=== PATIENT | female | born 1970 | race Caucasian/White ===

== ENCOUNTER 2016-09-27 19:31 | Inpatient (IN) | payer BC, OTHER ==
[~2016-09-27] VITALS: Ht 162.6 cm; Wt 49.9 kg
[2016-09-27] MEDS ORDERED: diphenhydrAMINE 50 MG CAPSULE PO PRN (21:45)
[2016-09-27] MEDS ORDERED: MAG HYDROX/AL HYDROX/SIMETH 30 ML LIQUID UDC PO PRN (21:45)
[2016-09-27] MEDS ORDERED: THIAMINE HCL 200 MG/2 ML VIAL IM ONE (21:45)
[2016-09-27] MEDS ORDERED: MIRALAX 17 GM POWD.PACK PO PRN (21:45)
[2016-09-27] MEDS ORDERED: PROMETHAZINE HCL 25 MG/1 ML VIAL IM PRN (21:45)
[2016-09-27] MEDS ORDERED: LOPERAMIDE HCL 2 MG CAPSULE PO PRN ×2 (21:45)
[2016-09-27] MEDS ORDERED: ONDANSETRON ODT 4 MG TAB.RAPDIS SL PRN (21:45)
[2016-09-27] MEDS ORDERED: MAGNESIUM HYDROXIDE 30 ML LIQUID UDC PO PRN (21:45)
[2016-09-27] MEDS ORDERED: DICYCLOMINE HCL 20 MG TABLET PO PRN (21:45)
[2016-09-27] MEDS ORDERED: LORAZEPAM 1 MG TABLET PO PRN ×2 (21:45)
[2016-09-27] MEDS ORDERED: LORAZEPAM 2 MG/1 ML VIAL IM PRN (21:45)
[2016-09-27] MEDS ORDERED: ACETAMINOPHEN 325 MG TABLET PO PRN (21:45)
[2016-09-27 22:00] VITALS: BP 148/102
[2016-09-27] MEDS ORDERED: HYDROXYZINE PAMOATE 25 MG CAPSULE ONE (22:06)
[2016-09-27] MEDS: CLONIDINE HCL 0.1 MG TABLET PO PRN (22:12)
[2016-09-27] MEDS: HYDROXYZINE PAMOATE 25 MG CAPSULE PO PRN (22:13)
--- NOTE | 2016-09-27 22:15 | NUR ---
PRN Clonidine, Vistaril, and Zofran Pt is anxious and agitated. She appears mildly intoxicated. She becomes tearful at times and is unable to sit still during initial assessment. CIWA score is 7. B/P 148/102 and HR 107 on admission. She also reports nausea. PRN Clonidine, Vistaril, and Zofran administered.
[2016-09-27] MEDS ORDERED: CLONIDINE HCL 0.1 MG TABLET ONE (22:16)
[2016-09-27] MEDS ORDERED: ONDANSETRON ODT 4 MG TAB.RAPDIS ONE (22:18)
[2016-09-27 22:47] LABS: *AMPHETAMINE, URINE NEGATIVE (NEGATIVE); *BARBITURATE, URINE NEGATIVE (NEGATIVE); *CANNABINOID, URINE NEGATIVE (NEGATIVE); *COCCAINE, URINE NEGATIVE (NEGATIVE); *OPIATE, URINE NEGATIVE (NEGATIVE); *PHENCYCLIDINE SCREEN,URINE NEGATIVE (NEGATIVE)
[2016-09-27 23:15] VITALS: BP 137/90
--- NOTE | 2016-09-27 23:15 | NUR ---
PRN Clonidine, Vistaril, and Zofran reassessment Pt reports relief of nausea and feeling somewhat more relaxed. She is slightly less fidgety. B/P 137/90 and HR 88. CIWA score is 4.
[2016-09-27 23:21] LABS: *URINE HCG, QUAL NEGATIVE (NEGATIVE)
--- NOTE | 2016-09-27 23:30 | NUR ---
ADMISSION Pt is a 46 yo female who [facility] at 2144 on 09/27/16 for medically supervised detox. She is A&O x4 and ambulatory. She reports NKA, is full code status, and on a regular diet. She appears mildly intoxicated and answers questions appropriately. Her gait is slightly unsteady. Pt placed on a 1:1 for safety. Vital signs are B/P 148/102, HR 107, RR 18, O2 sat 97%, T 98.0, and pain 0/10. She is 5'4" and weighs 110lb. She has a PMH of seizure 06/2016 r/t ETOH withdrawal, anxiety, and depression r/t being a 03/07 survivor. Lung sounds clear, PERRLA, bowel sounds present, abdomen soft and non-distended, skin is intact. History of Use ETOH/Vodka or Wine 750mL per day for the past 30 days. She has used ETOH since age 14. Last drink was 1 bottle of wine at 2030 on 09/27/16. Treatment History "I have been in and out of the hospital. I went to [facility] ER in June and 8 months ago" [facility] in [place] in 2013 for 30 days Pt has been to at treatment several times but cannot provide details. Pt smokes 1 pack of cigarettes per day. Prior to 30 days ago the patient reports 4 months of sobriety. Her longest period of sobriety was 2 years "from age [age]". She decided to come to treatment today because "I don't want to ". Pt reports symptoms when she does not drink include "shaky, seizure, anxiety, and it just hurts". She does not have a primary care physician at home. She states that she recently sold her home and lives in a hotel. Urine drug screen negative for all substances. Blood Alcohol level 0.30. CIWA on admission was 7. Admission orders received. Pt educated regarding use of the call light and all questions answered. Fall and seizure precautions in place.
[2016-09-27 23:51] LABS: ALBUMIN 4.2 g/dL (3.4-5.0); BILIRUBIN,TOTAL 0.8 mg/dL (0.2-1.0); CALCIUM 8.7 mg/dL (8.5-10.1); CREATININE 0.9 mg/dL (0.6-1.3); MAGNESIUM 1.9 mg/dL (1.8-2.4); POTASSIUM 3.8 mmol/L (3.5-5.1); TOTAL PROTEIN, SERUM 8.8 g/dL (6.4-8.2)
[2016-09-27 23:59] LABS: BASOPHILS # (AUTO) 0.1 K/uL (0.0-0.2); BASOPHILS % (AUTO) 0.7 % (0.0-2.0); EOSINOPHILS # (AUTO) 0.1 K/uL (0.0-0.7); HEMATOCRIT 44.8 % (37.0-47.0); HEMOGLOBIN 15.3 g/dL (12.0-16.0); LYMPHOCYTES % (AUTO) 38.1 % (20.5-51.5); MEAN CORPUSCULAR HEMOGLOBIN 29.1 uug (27.0-31.0); MEAN CORPUSCULAR HGB CONC 34 g/dL (32.0-37.0); MEAN CORPUSCULAR VOLUME 85.2 fL (81.0-99.0); MONOCYTES # (AUTO) 0.3 K/uL (0.1-1.30); MONOCYTES % (AUTO) 4.4 % (0.0-11.0); NEUTROPHILS # (AUTO) 4.4 K/uL (1.8-8.9); NEUTROPHILS % (AUTO) 55.8 % (38.5-71.5); PLATELET COUNT (AUTO) 300 K/uL (150-450); RED BLOOD CELL COUNT(AUTO) 5.26 MIL/uL (4.20-5.40); RED CELL DISTRIBUTION WIDTH 12.4 % (11.5-14.5); THYROID STIMULATING HORMONE 0.864 mIU/mL (0.358-3.740); WHITE BLOOD COUNT (AUTO) 7.9 K/uL (4.0-11.2)
[2016-09-28] VITALS: BP 137/90
[2016-09-28] MEDS ORDERED: TRAZODONE 50 MG TABLET PO SCH
[2016-09-28 00:02] LABS: HIV-1 p24 ANTIGEN NON REACTIVE (NONREACTIVE); HIV-1/2 ANTIBODY NON REACTIVE (NONREACTIVE)
[2016-09-28 02:40] VITALS: BP 130/86
--- NOTE | 2016-09-28 02:47 | NUR ---
PRN Ativan administration Pt woke up and reported feeling anxious and agitated. She is unable to sit still and gets in and out of bed. She states "I hurt everywhere, I'm used to drinking around the clock". B/P 130/84 and HR 96. CIWA score is 7. PRN Ativan administered.
[2016-09-28] MEDS ORDERED: LORAZEPAM 1 MG TABLET ONE (02:49)
--- NOTE | 2016-09-28 03:47 | NUR ---
PRN Ativan reassessment PRN Ativan effective. Pt is lying comfortably in bed resting with eyes closed. Respirations even and unlabored. Bed is down with call light in reach.
[2016-09-28] MEDS ORDERED: QUET50TA PO ×2 (03:59→08:56)
--- NOTE | 2016-09-28 07:15 | NUR ---
END OF SHIFT Report provided to day shift nurse. Pt is lying in bed resting. She is a 46 yo female admitted to [facility] on 09/27 for ETOH dependence. She has NKA, is full code status, and on a regular diet. Pt was placed on a 1:1 for unsteady gait upon admission as she was mildly intoxicated. 1:1 discontinued as pt's gait became steady. PRN Zofran, Clonidine, Vistaril, and Ativan administered. Last CIWA was 7 prior to Ativan administration. She drank 1210mL and slept for 4 hours.
--- NOTE | 2016-09-28 07:16 | NUR ---
Start of Shift Notes: Received patient in his room. Alert and oriented x 4. Verbally responsive. Appears anxious and tremulous at this time. Able to make his needs known. Respirations even and unlabored. No SOB noted. Skin warm and dry to touch. Abdomen soft and non-distended. BS (+) in all 4 quadrants. No complains of N/V/D or constipation noted. Bladder non-distended. No complains of dysuria noted. Voids independently. Patient is a 46 year old female admitted for ETOH dependence who was placed on PRNs at this time. MD to reassess taper today. Has past medical hx of anxiety, depression and seizures - last one was on 06/2016. NKA. FULL CODE. Regular diet. On fall and seizure precautions. Educated patient on the current plan of care for the day and the medication regimen. Encouraged oral fluid intake and encouraged group participation to learn new skills to prevent relapse. Will continue to monitor closely.
[2016-09-28] MEDS ORDERED: ONDANSETRON 4 MG/2 ML VIAL IM PRN (07:45)
[2016-09-28 08:00] VITALS: BP 126/76
[2016-09-28] MEDS: THIAMINE HCL 100 MG TABLET PO SCH (08:51)
[2016-09-28] MEDS: IBUPROFEN 400 MG TABLET PO PRN ×2 (08:51→20:39)
[2016-09-28] MEDS: FOLIC ACID 1 MG TABLET PO SCH (08:51)
[2016-09-28] MEDS: MULTIVITAMINS,THERAPEUTIC TABLET PO SCH (08:51)
[2016-09-28] MEDS: CLONIDINE HCL 0.1 MG TABLET PO PRN (08:51)
--- NOTE | 2016-09-28 08:51 | NUR ---
Ativan 2 mg/Clonidine 0.1/Imodium 4 mg/Motrin 400 mg PO given: Patient noted with CIWA 16; presented with x 2 episodes of diarrhea, anxiousness, agitation, muscle aches, headache 4/10, visual hallucinations m/b seeing black spots on the wall as well as gross tremors. Medicated patient with Ativan 2 mg per CIWA score of 16, Clonidine 0.1, Imodium 4 mg and Motrin 400 mg PO as ordered. Will monitor for effectiveness. Dr. Oquendo made aware of patient's CIWA score.
[2016-09-28] MEDS ORDERED: LITH300C2 PO (08:56)
[2016-09-28] MEDS ORDERED: TUBERCULIN,PURIF.PROT.DERIV. 5 TU/0.1 ML TEST ID ONE (09:00)
[2016-09-28] MEDS ORDERED: QUETIAPINE FUMARATE 25 MG TABLET PO PRN (09:30)
--- NOTE | 2016-09-28 09:30 | NUR ---
Communication: Dr. Oquendo aware of patient's CIWA score of 16 and will start patient on 5-day Ativan taper at 1000. Orders noted and carried out. Patient informed and made aware.
--- NOTE | 2016-09-28 09:51 | NUR ---
Re-assessment/Seroquel 12.5mg PO given/Taper started: ANSLEYWA 13; No further episodes of diarrhea noted, gross tremors still noted, less anxious and less anxiety noted. Started Ativan 2 mg PO at 1000 per scheduled taper and medicated patient Seroquel 12.5mg PO for visual hallucinations. Will continue to monitor.
[2016-09-28] MEDS: LORAZEPAM 1 MG TABLET PO SCH ×4 (09:58→20:39)
--- NOTE | 2016-09-28 10:51 | NUR ---
Re-assessment: Seroquel Per patient, she no longer sees black dot on the dalal. PRN Seroquel was effective.
--- NOTE | 2016-09-28 11:54 | NUR ---
Room change: Patient was moved from Rm 301 to 310 at this time with all belongings.
[2016-09-28 12:00] VITALS: BP 125/85
[2016-09-28 16:00] VITALS: BP 111/76
--- NOTE | 2016-09-28 17:47 | NUR ---
Ativan 2 mg PO at 1700 held: Patient appears sedated. VS stable. BP 11/75, Pulse 60, O2 sat 99%, RR 16. Held [address] Oquendo made aware.
--- NOTE | 2016-09-28 18:41 | NUR ---
End of Shift Notes: Patient is a 46 year old female admitted for ETOH dependence who was placed on a 5-day Ativan taper that was started today at 1000. Tolerated taper well. No adverse reactions noted. FULL CODE. Regular diet. NKA. Has past medical hx of seizures last one in 2017, anxiety, depression and bipolar disorder. Prior to admission, patient was using 750cc or either wine or vodka since 14 years old. On fall and seizure precautions. Initial CIWA 16, patient presented with visual hallucinations, gross tremors, diarrhea, anxiety, agitation, pins and needless or tingling sensation to her fingertips. Patient reports seeing black dots on the dalal. Redirected and reassurance provided. Medicated patient with Ativan 2 mg, Imodium 4mg, Motrin 400mg, and Clonidine 0.1mg PO at 0851 with help after 1 hour. At 0951 Seroquel 12.5 mg PO was given due to visual hallucinations and initial dose of taper was started. Last CIWA 2. Compliant with care and treatment. Per patient, Ativan has been helping her with her withdrawal symptoms. Able to participate in group and activities despites her withdrawal symptoms. Patient was moved from 201 to 310 at this time. Oral fluids encouraged. Safety precautions in place. All needs met and attended. Will continue to monitor closely.
[2016-09-28 20:00] VITALS: BP 117/76
--- NOTE | 2016-09-28 20:00 | NUR ---
1999 Patient received resting comfortably with eyes closed. Aroused easily for nurse assess and vital signs. Patient responds slowly to nurse's greeting with brief eye contact and a flat, " hello". Patient's color is pink and her skin is warm, dry and intact. Patient is oriented to person, place, day and her situation. Reoriented to date and time. Patient's lung sounds are clear bilaterally and active bowel sounds are noted X 4 abdominal Quads, per auscultation. Patient noted to move all her extremities fully WNL, though a bit slowly and measured. Patient states that she has been eating a little and taking fluids ad huang since her admission and she further states that she hasn't attended [facility] on a regular basis yet, and in fact did not feel up to attending PM group tonight. Vital signs are: 98-98-16 117/76 O2 sat 100%, CIWA 3. No requests or complaints voiced at this time. [place] snack and sprite taken. Patient was admitted on 09/27/16 for Alcohol withdrawal and she is currently on a 5-Day Ativan medication taper, which she has been apparently well so far. Fall/Seizure precautions continue. Bed is locked and in lowest position, bed rails are up X 2 and call light within patient's easy reach.
[2016-09-28] MEDS: QUETIAPINE FUMARATE 25 MG TABLET PO PRN (20:39)
--- NOTE | 2016-09-28 20:39 | NUR ---
PRN MEDICATIONS: Prn Motrin 400 mg p.o. given per request for her c/o "generalized pain, 7/10 pain scale and Prn Seroquel 25 mg p.o. given per patient's request for sleep medication.
--- NOTE | 2016-09-28 21:39 | NUR ---
REASSESSMENT PRN MEDICATIONS: Patient is awake, alert and downstairs on hospital patio for cigarette with staff and other patients.
[2016-09-29] VITALS: BP 110/71
--- NOTE | 2016-09-29 04:00 | NUR ---
Patient refused V/S, CIWA to be done at this time.
--- NOTE | 2016-09-29 06:30 | NUR ---
0630 Patient slept a total of 7 hours and she had 1 void and no stools. Total intake was 1,151 ml p.o. Prn medications given noted separately per floor protocol. V/SS afebrile, CIWA 3. Patient's overall mood/affect when she is awake is slightly flat/guarded, however she is verbally appropriate when interacting with staff. Patient is presently resting comfortably in stable condition. Eyes closed and respirations regular, unlabored at 14.
--- NOTE | 2016-09-29 07:40 | NUR ---
START OF SHIFT 310 Received report from night supervisor nurse. Pt is lying in bed resting. She is a 46 yo female admitted to [facility] on 09/27 for ETOH Dependence. She is A&O x4 and ambulatory. NKA, full code status, and on a regular diet. She has a PMH anxiety and depression. She has a h/o seizure with the last one being 06/2016. On admission she admitted to drinking vodka or wine 750mL per day for the past 30 days. Pt started a 5 day Ativan taper on 09/28. Respirations even and unlabored. She reports waking up with a headache. Fall and seizure precautions in place. Bed is down with call light in reach.
[2016-09-29 08:00] VITALS: BP 128/75
[2016-09-29] MEDS: FOLIC ACID 1 MG TABLET PO SCH (08:19)
[2016-09-29] MEDS: IBUPROFEN 400 MG TABLET PO PRN (08:20)
[2016-09-29] MEDS: MULTIVITAMINS,THERAPEUTIC TABLET PO SCH (08:20)
[2016-09-29] MEDS: THIAMINE HCL 100 MG TABLET PO SCH (08:20)
--- NOTE | 2016-09-29 08:27 | NUR ---
PRN Motrin Pt reported headache. PRN Motrin administered.
[2016-09-29] MEDS ORDERED: LORAZEPAM 1 MG TABLET PO SCH (09:00)
--- NOTE | 2016-09-29 09:30 | NUR ---
PRN Motrin reassessment Pt reports that her headache is mostly relieved. She denies the need for any other medication.
[2016-09-29 11:18] LABS: HCV AB <0.1 s/co ratio (0.0-0.9); HEPATITIS B CORE AB, IgM Negative (Negative); HEPATITIS B SURFACE AG Negative (Negative)
[2016-09-29] MEDS: CLONIDINE HCL 0.1 MG TABLET PO PRN ×2 (11:26→18:10)
--- NOTE | 2016-09-29 11:31 | NUR ---
PRN Clonidine Pt reports feeling anxious. She is bouncing her legs while sitting down. B/P 153/101 and HR 110. CIWA score 8. PRN Clonidine administered.
[2016-09-29 12:25] VITALS: BP 122/90
--- NOTE | 2016-09-29 12:30 | NUR ---
PRN Clonidine reassessment Pt reports feeling more relaxed. B/P 122/90 and HR 68.
[2016-09-29] MEDS: LORAZEPAM 1 MG TABLET PO SCH ×2 (15:01→22:23)
[2016-09-29] MEDS: HYDROXYZINE PAMOATE 25 MG CAPSULE PO PRN (18:10)
--- NOTE | 2016-09-29 18:12 | NUR ---
PRN Clonidine and Vistaril administration Pt c/o feeling anxious and "uneasy". She has tingling sensation on the side of bilateral legs. B/P 142/111 and HR 95. CIWA score is 8. PRN Clonidine and Vistaril administered.
[2016-09-29 20:00] VITALS: BP 128/87
--- NOTE | 2016-09-29 20:25 | NUR ---
END OF SHIFT Report provided to cage shift manager nurse. Pt is lying in bed resting. She is a 46 yo female admitted to [facility] on 09/27 for ETOH Dependence. She is A&O x4 and ambulatory. NKA, full code status, and on a regular diet. She has a PMH anxiety and depression. She has a h/o seizure with the last one being 06/2016. On admission she admitted to drinking vodka or wine 750mL per day for the past 30 days. Pt started a 5 day Ativan taper on 09/28. She experienced anxiety and tremors during the day. PRN Clonidine administered x2 and Vistaril administered x1. Last CIWA was 4. Fall and seizure precautions in place. Bed is down with call light in reach.
--- NOTE | 2016-09-29 20:30 | NUR ---
2030 Patient received resting quietly with eyes closed and respirations even, unlabored at 14. Patient aroused for nurse assess and vital signs. Patient responds to nurse's greeting with facial frown, while loudly saying to nurse and shaking her head, " Can't you see that the patient is sleeping.?! I don't see where it's necessary that you have to wake me up, when you can see that I am sleeping! This is ridiculous!" Explanation given to patient that it is both necessary and responsible to assess all patients periodically throughout each shift, to measure patient response or lack of patient response to medical treatment and nursing care. Patient then looks away from nurse and states, " I don't know, maybe it's your aura or something". I just know that I'm tired of being woken up when I'm obviously asleep!" Patient is oriented to person, place, day, date and her personal situation. Reoriented to time. Patient's color is pink and her skin is warm, dry and intact. Patient denies any pain and voices no requests at this time. Vital signs are: 98.3-83-16 128/87 O2 Sat 98%, CIWA 5. Patient resists nurse's questions concerning patient's eating, taking fluids, going to groups, and Patient just glares at nurse. Patient was admitted on 09/27/16 for Alcohol ( wine/vodka) withdrawal and she is currently on an Ativan medication taper, which she is apparently tolerating well so far. Bed is locked and in lowest position, bed rails are up X 2 and call light within patient's easy reach.
[2016-09-29] MEDS: QUETIAPINE FUMARATE 25 MG TABLET PO PRN (22:27)
--- NOTE | 2016-09-29 22:27 | NUR ---
PRN MEDICATION: Prn Seroquel 25 mg p.o. given per patient's request for sleep medication.
--- NOTE | 2016-09-29 23:27 | NUR ---
REASSESSMENT PRN MEDICATION: Patient is sleeping soundly with eyes closed and respirations quiet, even, unlabored at 14.
--- NOTE | 2016-09-30 | NUR ---
Patient insisted angrily at 1999 that she not be awakened for V/S to be done at 0000. Patient is noted sleeping soundly at this time. Q4 hours CIWA 5.
--- NOTE | 2016-09-30 04:00 | NUR ---
Patient insists angrily at 1999 that she not be awakened for V/S at 0400. Patient is sleeping at this time, so CIWA deferred.
--- NOTE | 2016-09-30 06:30 | NUR ---
0630 Patient slept a total of 8 hours and she had 2 voids and no stools. Total intake was 1,000 ml p.o. Prn medication given noted separately per floor protocol. V/SS afebrile, CIWA 5. Patient is presently sleeping comfortably in stable condition at this time. Respirations even, unlabored at 14.
--- NOTE | 2016-09-30 07:15 | NUR ---
Start of Shift Notes: Received patient in his room. Alert and oriented x 4. Verbally responsive. Able to make his needs known. Respirations even and unlabored. No SOB noted. Skin warm and dry to touch. Abdomen soft and non-distended. BS (+) in all 4 quadrants. No complains of N/V/D or constipation noted. Bladder non-distended. No complains of dysuria noted. Voids independently. Patient is a 46 year old female admitted for ETOH dependence who was placed on 5-day Ativan taper as ordered.. Has past medical hx of anxiety, depression and seizures - last one was on 06/2016. NKA. FULL CODE. Regular diet. On fall and seizure precautions. Educated patient on the current plan of care for the day and the medication regimen. Encouraged oral fluid intake and encouraged group participation to learn new skills to prevent relapse. Will continue to monitor closely.
[2016-09-30 08:00] VITALS: BP 126/86
[2016-09-30] MEDS: LORAZEPAM 1 MG TABLET PO SCH ×3 (08:19→17:00)
[2016-09-30] MEDS: MULTIVITAMINS,THERAPEUTIC TABLET PO SCH (08:19)
[2016-09-30] MEDS: FOLIC ACID 1 MG TABLET PO SCH (08:19)
[2016-09-30] MEDS: THIAMINE HCL 100 MG TABLET PO SCH (08:20)
[2016-09-30] MEDS: CLONIDINE HCL 0.1 MG TABLET PO PRN (10:15)
[2016-09-30] MEDS: HYDROXYZINE PAMOATE 25 MG CAPSULE PO PRN (10:18)
--- NOTE | 2016-09-30 10:18 | NUR ---
PRN Clonidine and PRN Vistaril PO given: Patient noted with complain of increased anxiety, noted with sweaty palms and fine tremors to BUE. Non-pharmacological interventions were provided with no help. Medicated patient with Clonidine 0.1mg PO and Vistaril 50 mg PO as ordered. Will monitor for effectiveness.
--- NOTE | 2016-09-30 11:18 | NUR ---
Re-assessment: Per patient, PRN Clonidine and Vistaril were effective in reducing anxiety, agitation, sweats. Less tremors noted to BUE.
--- NOTE | 2016-09-30 11:33 | NUR ---
MD Communication: Patient noted with left sided flank pain radiating to her hips 10/04. Offered PRN Motrin or Tylenol but refused. Patient states "It feels sore." Patient reports having dark colored urinary output. Tolerating PO fluids and compliant. Reported patient's condition to Dr. Oquendo. Will enter in orders.
--- NOTE | 2016-09-30 11:39 | NUR ---
New Orders: New orders received from Dr. Oquendo for patient to have UA and to start on Gabapentin 300 mg PO to control her tremors, anxiety and pain. Orders noted and carried out.
[2016-09-30 12:00] VITALS: BP 130/94
[2016-09-30] MEDS: GABAPENTIN 300 MG CAPSULE PO SCH ×2 (13:00→17:00)
--- NOTE | 2016-09-30 13:03 | NUR ---
Gabapentin and Ativan at 1300 not administered: Patient refused Gabapentin and Ativan at 1300 at this time. Educated patient on the risk and the benefits but patient still refused. Offered 3x. Patient verbalized understanding, patient still refused. MD Oquendo made aware.
[2016-09-30 16:00] VITALS: BP 125/68
--- NOTE | 2016-09-30 17:58 | NUR ---
Gabapentin and Ativan at 1700 not administered: Patient refused Gabapentin and Ativan at 1700 at this time. Educated patient on the risk and the benefits but patient still refused. Offered 3x. Patient verbalized understanding, patient still refused. MD Oquendo made aware.
--- NOTE | 2016-09-30 18:15 | NUR ---
End of Shift Notes: Patient is a 46 year old female admitted for ETOH dependence who was placed on a 5-day Ativan taper that was started today at 1000. Tolerated taper well. No adverse reactions noted. FULL CODE. Regular diet. NKA. Has past medical hx of seizures last one in 2017, anxiety, depression and bipolar disorder. Prior to admission, patient was using 750cc or either wine or vodka since 14 years old. On fall and seizure precautions. Initial CIWA 7, patient presented with gross tremors, sweats and anxiety. Redirected and reassurance provided. Medicated patient with Clonidine and Vistaril as ordered at 1015 with help afte 1 hour. Last CIWA 7 due to anxiety and agitation. Refused Ativan and Gabapentin at 1300 and 1700. High risk for AMA. receiving supervisor and Dr. Oquendo made aware. Able to participate in group and activities despites her withdrawal symptoms. Oral fluids encouraged. Safety precautions in place. All needs met and attended. Will continue to monitor closely.
--- NOTE | 2016-09-30 18:31 | NUR ---
AMA: Patient verbalized wanting to leave against medical advice. Per patient she is not ready to be sober. Refused all meds at 1300 and 1700. Notified Addison (client relations representative) and Dr. Oquendo. But after multiple attempts from staff to encourage patient to stay, patient continues to insist on leaving.
--- NOTE | 2016-09-30 18:57 | NUR ---
AMA NOTE Pt states she wants to leave AMA d/t not being ready to stay sober. Pt educated about risks and consequences of leaving AMA, pt verbalized understanding but still requested to leave. Multiple staff members and Dr Oquendo spoke with pt without any success. VS are WNL, pt denies any SI/HI, skin intact, last CIWA =8, Dr Oquendo aware and present on the unit when pt left. Pt was given a list of community resources in case she in need for help. All belongings returned to pt, pt did not have home medications. Pt left the facility on 09/30/16 at 1857
[2016-10-01] MEDS ORDERED: LORAZEPAM 1 MG TABLET PO SCH (09:00)
[2016-10-02] MEDS ORDERED: LORAZEPAM 1 MG TABLET PO SCH (09:00)
== END 2016-09-30 20:57 | disposition left against medical advice (07) | DRG 894 ==
LOC: SRC 20:56
PROVIDERS: ADMIT Internal Medicine; ATTEND Internal Medicine
PROC: HZ2ZZZZ Detoxification Services for Substance Abuse Treatment (ICD-10-PCS; principal; 2016-09-27)
PROC: HZ41ZZZ Group Counseling for Substance Abuse Treatment, Behavioral (ICD-10-PCS; 2016-09-28)
PROC: HZ31ZZZ Individual Counseling for Substance Abuse Treatment, Behavioral (ICD-10-PCS; 2016-09-29)
DX: F10.230 Alcohol dependence with withdrawal, uncomplicated (principal); K70.10 Alcoholic hepatitis without ascites; F13.10 Sedative, hypnotic or anxiolytic abuse, uncomplicated; Y90.8 Blood alcohol level of 240 mg/100 ml or more; Z82.49 Family history of ischemic heart disease and other diseases of the circulatory system; Z81.1 Family history of alcohol abuse and dependence; Z59.1 Inadequate housing; F17.210 Nicotine dependence, cigarettes, uncomplicated; F41.9 Anxiety disorder, unspecified; G47.00 Insomnia, unspecified; L50.9 Urticaria, unspecified; F10.251 Alcohol dependence with alcohol-induced psychotic disorder with hallucinations; F43.10 Post-traumatic stress disorder, unspecified; X58.XXXA Exposure to other specified factors, initial encounter; Y92.89 Other specified places as the place of occurrence of the external cause; F31.9 Bipolar disorder, unspecified
CPT/HCPCS: 36415; 70030-TC; 80307; 83690; 83735; 84443; 84703; 85025; 86580; 86592; 86705; 86803; 87340; 87806; A4663; G6040-TC; J3411; Q0162

== ENCOUNTER 2020-06-16 13:40 | Emergency (ER) | payer BC, OTHER ==
[~2020-06-16] VITALS: Ht 162.6 cm; Wt 56.7 kg
[~2020-06-16 13:40] MED LIST: QUET50TA PO
--- NOTE | 2020-06-16 14:06 | NUR ---
PT SEEN AND EVALUATED BY DR ROBIN.
[2020-06-16 14:07] VITALS: BP 150/88
== END 2020-06-16 14:08 | disposition home or self-care (01) ==
LOC: ER 13:40
DX: F10.239 Alcohol dependence with withdrawal, unspecified (principal)
CPT/HCPCS: A4663

== ENCOUNTER 2023-09-19 11:55 | Inpatient (IN) | payer BC, OTHER ==
[~2023-09-19] VITALS: Ht 162.6 cm; Wt 56.7 kg
[2023-09-19] MEDS ORDERED: LORAZEPAM 2 MG/1 ML VIAL ONE ×2 (12:33→16:24)
[2023-09-19 12:49] LABS: BASOPHILS # (AUTO) 0.4 K/UL (0.0-0.2); BASOPHILS % (AUTO) 3.7 % (0.0-2.0); EOSINOPHILS # (AUTO) 0.1 K/uL (0.0-0.7); EOSINOPHILS % (AUTO) 0.7 % (0.0-7.0); HEMATOCRIT 40.2 % (31.2-41.9); HEMOGLOBIN 13.2 g/dL (10.9-14.3); LYMPHOCYTES # (AUTO) 0.5 K/uL (0.8-4.8); LYMPHOCYTES % (AUTO) 5.5 % (20.5-51.5); MEAN CORPUSCULAR HEMOGLOBIN 28.2 uug (24.7-32.8); MEAN CORPUSCULAR HGB CONC 33 g/dL (32.3-35.6); MEAN CORPUSCULAR VOLUME 85.8 fL (75.5-95.3); MONOCYTES # (AUTO) 0.2 K/uL (0.1-1.30); MONOCYTES % (AUTO) 1.7 % (0.0-11.0); NEUTROPHILS # (AUTO) 8.9 K/uL (1.8-8.9); NEUTROPHILS % (AUTO) 88.4 % (38.5-71.5); PLATELET COUNT (AUTO) 290 K/uL (179-408); RED BLOOD CELL COUNT(AUTO) 4.68 MIL/uL (3.63-4.92); RED CELL DISTRIBUTION WIDTH 15.6 % (12.3-17.7)
[2023-09-19] MEDS: IV D5/ 0.9% NACL 1,000 ML IV ONE (12:49)
[2023-09-19] MEDS: LORAZEPAM 2 MG/1 ML VIAL IV ONE ×3 (12:49→21:16)
[2023-09-19] MEDS ORDERED: THIAMINE HCL 200 MG/2 ML VIAL ONE (12:52)
[2023-09-19] MEDS ORDERED: PYRIDOXINE HCL 100 MG/1 ML VIAL ONE (12:52)
[2023-09-19] MEDS: PYRIDOXINE HCL 100 MG/1 ML VIAL IV ONE (12:58)
[2023-09-19] MEDS: THIAMINE HCL 200 MG/2 ML VIAL IV ONE (12:58)
[2023-09-19 13:04] LABS: ALBUMIN 4.6 g/dL (3.4-5.0); BILIRUBIN,DIRECT 0.2 mg/dL (0.0-0.2); BILIRUBIN,TOTAL 1.1 mg/dL (0.2-1.0); CREATININE 0.7 mg/dL (0.6-1.3); POTASSIUM 4.6 mmol/L (3.5-5.1); TOTAL PROTEIN, SERUM 8.9 g/dL (6.4-8.2)
[2023-09-19 13:06] LABS: DIFFERENTIAL COMMENT 1
[2023-09-19 13:10] LABS: CALCIUM 8.9 mg/dL (8.5-10.1)
[2023-09-19] MEDS: IV D5 1/2 NS 1000 ML 1,000 ML IV ONE (15:12)
[2023-09-19 16:16] LABS: *BILIRUBIN,URIN NEGATIVE (NEGATIVE); *BLOOD, URINE TRACE (NEGATIVE); *CLARITY,URINE CLEAR (CLEAR); *COLOR,URINE YELLOW (YELLOW); *KETONES,URINE 3+ (NEGATIVE); *PROTEIN,URINE 1+ (NEGATIVE); *UROBILINOGEN,URINE 0.2 E.U./dl (NORMAL); LEUKOCYTE ESTERASE ,URINE NEGATIVE (NEGATIVE); NITRITE, URINE NEGATIVE (NEGATIVE); UGLUCOSE 2+ (NEGATIVE)
[2023-09-19 16:18] LABS: *URINE HCG, QUAL NEGATIVE (NEGATIVE)
[2023-09-19 16:26] LABS: BACTERIA,URINE MODERATE /HPF (NONE SEEN); RBC,URINE 0-3 /HPF (0-3); SQUAMOUS EPITHELIAL CELL,UR MODERATE /HPF (NONE SEEN); WBC,URINE 0-3 /HPF (0-3)
[2023-09-19 16:29] LABS: CALCIUM 8.1 mg/dL (8.5-10.1); CREATININE 0.9 mg/dL (0.6-1.3); POTASSIUM 4.1 mmol/L (3.5-5.1)
[2023-09-19 17:19] LABS: *AMPHETAMINE, URINE NEGATIVE (NEGATIVE); *BARBITURATE, URINE NEGATIVE (NEGATIVE); *BENZODIAZEPINE, URINE NEGATIVE (NEGATIVE); *CANNABINOID, URINE POSITIVE (NEGATIVE); *COCCAINE, URINE NEGATIVE (NEGATIVE); *OPIATE, URINE NEGATIVE (NEGATIVE); *PHENCYCLIDINE SCREEN,URINE NEGATIVE (NEGATIVE); FENTANYL, URINE NEGATIVE (NEGATIVE)
[2023-09-19] MEDS ORDERED: ACETAMINOPHEN 325 MG TABLET PO PRN (22:00)
[2023-09-19] MEDS ORDERED: hydrALAZINE HCL 20 MG/1 ML VIAL IV PRN (22:00)
[2023-09-19] MEDS ORDERED: Medication Not On Formulary EA (Quetiapine Fumarate (Seroquel) 50 MG) PO SCH (22:00)
[2023-09-19] MEDS ORDERED: ONDANSETRON 4 MG/2 ML VIAL IV PRN (22:00)
[2023-09-19] MEDS ORDERED: CHLORDIAZEPOXIDE HCL 25 MG CAPSULE ONE (22:46)
[2023-09-19] MEDS: CHLORDIAZEPOXIDE HCL 25 MG CAPSULE PO SCH (22:47)
[2023-09-19] MEDS ORDERED: QUET200T PO (22:50)
[2023-09-19] MEDS ORDERED: LOSA100T31 PO (22:50)
[2023-09-19] MEDS ORDERED: PARO-142 PO (22:50)
[2023-09-19] MEDS ORDERED: HYDR-501 PO (22:52)
[2023-09-19] MEDS ORDERED: BACL10TA PO (22:52)
[2023-09-19 23:20] VITALS: BP 133/72; TEMP 98.3; O2SAT 98
[2023-09-19] MEDS: IV D5 1/2 NS 1000 ML 1,000 ML IV SCH (23:44)
[2023-09-20] MEDS: LORAZEPAM 2 MG/1 ML VIAL IV PRN (03:58)
[2023-09-20 06:15] VITALS: BP 144/87; TEMP 98.4; O2SAT 100
[2023-09-20 06:46] LABS: EOSINOPHILS # (AUTO) 0.1 K/uL (0.0-0.7); EOSINOPHILS % (AUTO) 0.9 % (0.0-7.0); LYMPHOCYTES # (AUTO) 1.2 K/uL (0.8-4.8); MONOCYTES # (AUTO) 0.6 K/uL (0.1-1.30); RED CELL DISTRIBUTION WIDTH 14.7 % (12.3-17.7)
[2023-09-20 07:10] LABS: ALBUMIN 3.5 g/dL (3.4-5.0); BILIRUBIN,TOTAL 1.9 mg/dL (0.2-1.0); CALCIUM 8.4 mg/dL (8.5-10.1); CREATININE 0.8 mg/dL (0.6-1.3); PHOSPHOROUS 2.8 mg/dL (2.5-4.9); POTASSIUM 3.2 mmol/L (3.5-5.1); TOTAL PROTEIN, SERUM 7.1 g/dL (6.4-8.2)
[2023-09-20 07:21] LABS: BASOPHILS % (AUTO) 0.5 % (0.0-2.0); HEMOGLOBIN 12.2 g/dL (10.9-14.3); LYMPHOCYTES % (AUTO) 18.4 % (20.5-51.5); MEAN CORPUSCULAR HEMOGLOBIN 28.1 uug (24.7-32.8); MEAN CORPUSCULAR HGB CONC 33 g/dL (32.3-35.6); MONOCYTES % (AUTO) 9.4 % (0.0-11.0); NEUTROPHILS # (AUTO) 4.6 K/uL (1.8-8.9); NEUTROPHILS % (AUTO) 70.8 % (38.5-71.5); PLATELET COUNT (AUTO) 242 K/uL (179-408); RED BLOOD CELL COUNT(AUTO) 4.35 MIL/uL (3.63-4.92); WHITE BLOOD COUNT (AUTO) 6.4 K/uL (3.8-11.8)
[2023-09-20 07:24] LABS: DIFFERENTIAL COMMENT 1
[2023-09-20 08:12] VITALS: BP 158/101; TEMP 98.2; O2SAT 100
[2023-09-20] MEDS: HEPARIN SODIUM,PORCINE 5,000 UNITS/ML VIAL SQ SCH (09:01)
[2023-09-20] MEDS ORDERED: BACL20TA PO (10:16)
[2023-09-20] MEDS ORDERED: HYDR25CA PO (10:17)
[2023-09-20] MEDS ORDERED: PARO25TA16 PO (10:18)
[2023-09-20] MEDS ORDERED: PRAZ1CAP5 PO (10:20)
[2023-09-20 10:32] VITALS: BP 139/88; TEMP 99.8
[2023-09-20] MEDS: MORPHINE SULFATE 2 MG/1 ML DISP.SYRIN IVP PRN (10:44)
[2023-09-20 11:30] VITALS: BP 142/97; TEMP 98.2
[2023-09-20] MEDS ORDERED: PAROXETINE HCL 25 MG PO SCH (11:30)
[2023-09-20] MEDS: POTASSIUM CHLORIDE 20 MEQ TAB.PRT.SR PO ONE (12:29)
[2023-09-20] MEDS: LOSARTAN POTASSIUM 50 MG TABLET PO SCH (12:30)
[2023-09-20] MEDS: PAROXETINE 25 MG PO SCH (12:32)
[2023-09-20] MEDS ORDERED: OLANZAPINE 10 MG VIAL IM PRN (13:00)
[2023-09-20 14:06] LABS: ALBUMIN 3.9 g/dL (3.4-5.0); BILIRUBIN,TOTAL 1.7 mg/dL (0.2-1.0); CALCIUM 8.8 mg/dL (8.5-10.1); POTASSIUM 3.4 mmol/L (3.5-5.1); TOTAL PROTEIN, SERUM 7.8 g/dL (6.4-8.2)
[2023-09-20] MEDS: QUETIAPINE FUMARATE 200 MG TABLET PO SCH (18:16)
[2023-09-20 20:19] VITALS: BP 149/95; TEMP 97.9; O2SAT 99
[2023-09-21 04:10] VITALS: BP 113/75; TEMP 98.1; O2SAT 97
[2023-09-21 06:59] LABS: BASOPHILS % (AUTO) 0.7 % (0.0-2.0); EOSINOPHILS # (AUTO) 0.1 K/uL (0.0-0.7); EOSINOPHILS % (AUTO) 3.4 % (0.0-7.0); HEMATOCRIT 30.7 % (31.2-41.9); HEMOGLOBIN 10.4 g/dL (10.9-14.3); LYMPHOCYTES # (AUTO) 1.3 K/uL (0.8-4.8); LYMPHOCYTES % (AUTO) 35.2 % (20.5-51.5); MEAN CORPUSCULAR HEMOGLOBIN 28.9 uug (24.7-32.8); MEAN CORPUSCULAR HGB CONC 34 g/dL (32.3-35.6); MONOCYTES # (AUTO) 0.3 K/uL (0.1-1.30); MONOCYTES % (AUTO) 7.5 % (0.0-11.0); NEUTROPHILS # (AUTO) 1.9 K/uL (1.8-8.9); NEUTROPHILS % (AUTO) 53.2 % (38.5-71.5); PLATELET COUNT (AUTO) 193 K/uL (179-408); RED BLOOD CELL COUNT(AUTO) 3.61 MIL/uL (3.63-4.92); RED CELL DISTRIBUTION WIDTH 14.6 % (12.3-17.7); WHITE BLOOD COUNT (AUTO) 3.7 K/uL (3.8-11.8)
[2023-09-21 07:11] LABS: ALBUMIN 2.8 g/dL (3.4-5.0); BILIRUBIN,TOTAL 0.9 mg/dL (0.2-1.0); CALCIUM 8.2 mg/dL (8.5-10.1); CREATININE 0.7 mg/dL (0.6-1.3); PHOSPHOROUS 3.2 mg/dL (2.5-4.9); POTASSIUM 3.5 mmol/L (3.5-5.1)
[2023-09-21 07:20] LABS: DIFFERENTIAL COMMENT 1
[2023-09-21 07:22] LABS: THYROID STIMULATING HORMONE 2.219 mIU/mL (0.358-3.740)
[2023-09-21 07:38] LABS: MAGNESIUM 1.9 mg/dL (1.8-2.4)
[2023-09-21] MEDS: BISMUTH SUBSALICYLATE 262 MG/15 ML UDC PO PRN (09:18)
[2023-09-21 11:30] VITALS: BP 135/78; TEMP 97.7; O2SAT 98
[2023-09-21 13:21] VITALS: BP 106/66; TEMP 98.1
[2023-09-21 16:00] VITALS: BP 129/83; TEMP 97.8; O2SAT 99
[2023-09-21] MEDS: LORAZEPAM 2 MG/1 ML VIAL IV PRN (17:00)
[2023-09-21 20:00] VITALS: BP 136/86; TEMP 97.7; O2SAT 98
[2023-09-21] MEDS: QUETIAPINE FUMARATE 200 MG TABLET PO SCH (20:31)
[2023-09-21] MEDS ORDERED: PAROXETINE HCL 20 MG TABLET PO SCH (21:00)
[2023-09-21] MEDS ORDERED: QUETIAPINE FUMARATE 200 MG TABLET PO SCH (21:00)
[2023-09-22 06:00] VITALS: BP 125/85; TEMP 98; O2SAT 94
[2023-09-22] MEDS: BACLOFEN 20 MG TABLET PO SCH (09:00)
[2023-09-22 12:00] VITALS: BP 139/92; TEMP 97.6; O2SAT 95
[2023-09-22 16:37] VITALS: BP 148/92; TEMP 97.9; O2SAT 99
[2023-09-22 20:00] VITALS: BP 153/98; TEMP 98; O2SAT 98
[2023-09-22] MEDS ORDERED: BACLOFEN 20 MG TABLET PO ONE (21:13)
[2023-09-22] MEDS: BACLOFEN 20 MG TABLET PO PRN (21:36)
[2023-09-23 06:00] VITALS: BP 142/81; TEMP 97.7; O2SAT 95
[2023-09-23 08:50] VITALS: BP 139/86; TEMP 97.8; O2SAT 100
[2023-09-23 08:56] VITALS: BP 139/86
[2023-09-23] MEDS ORDERED: NICOTINE 14 MG/24HR PATCH TD SCH (13:00)
== END 2023-09-23 10:20 | disposition left against medical advice (07) | DRG 894 ==
LOC: ER 11:57 → TELE3 22:49 → MEDSURG3 09-20 12:04
PROVIDERS: ADMIT Internal Medicine; ATTEND Internal Medicine
PROC: 05HY33Z Insertion of Infusion Device into Upper Vein, Percutaneous Approach (ICD-10-PCS; 2023-09-20)
PROC: 05HY33Z Insertion of Infusion Device into Upper Vein, Percutaneous Approach (ICD-10-PCS; principal; 2023-09-23)
DX: F10.239 Alcohol dependence with withdrawal, unspecified (principal); E87.20 Acidosis, unspecified; E44.0 Moderate protein-calorie malnutrition; E86.0 Dehydration; E88.89 Other specified metabolic disorders; F43.12 Post-traumatic stress disorder, chronic; Y38.89 Terrorism involving other means; G47.00 Insomnia, unspecified; F39 Unspecified mood [affective] disorder; E87.6 Hypokalemia; K52.9 Noninfective gastroenteritis and colitis, unspecified; K70.10 Alcoholic hepatitis without ascites; F10.229 Alcohol dependence with intoxication, unspecified; Y90.6 Blood alcohol level of 120-199 mg/100 ml; F31.9 Bipolar disorder, unspecified; D64.9 Anemia, unspecified; E88.09 Other disorders of plasma-protein metabolism, not elsewhere classified; F17.210 Nicotine dependence, cigarettes, uncomplicated; Z59.86 Financial insecurity; Z82.49 Family history of ischemic heart disease and other diseases of the circulatory system; Z81.1 Family history of alcohol abuse and dependence
CPT/HCPCS: 36415; 83690; 83735; 84100; 84443; 84703; 85025; A4663; G0378; G0480; J1644; J2060; J2270; J3411; J3415